=== PATIENT | male | born 1955 | race Caucasian/White ===

== ENCOUNTER 2018-07-30 00:06 | Inpatient (IN) | payer OTHER ==
[~2018-07-30] VITALS: Ht 182.9 cm; Wt 200.0 kg
[~2018-07-30 00:06] MED LIST: AVAPRO150 MG
[2018-07-30] MEDS ORDERED: ATENOLOL25 GM (00:19)
[2018-07-30] MEDS ORDERED: VITAMIN A (00:19)
[2018-07-30] MEDS ORDERED: GLUCOPHAGE XR500 MG (00:19)
== END 2018-08-11 19:51 | disposition home or self-care (01) | DRG 439 ==
LOC: ER 00:06 → MEDI 06:19
PROC: BW40ZZZ Ultrasonography of Abdomen (ICD-10-PCS; principal; 2018-07-30)
PROC: 02HV33Z Insertion of Infusion Device into Superior Vena Cava, Percutaneous Approach (ICD-10-PCS; 2018-07-31)
PROC: BF37ZZZ Magnetic Resonance Imaging (MRI) of Pancreas (ICD-10-PCS; 2018-08-03)
PROC: BW30Y0Z Magnetic Resonance Imaging (MRI) of Abdomen using Other Contrast, Unenhanced and Enhanced (ICD-10-PCS; 2018-08-03)
DX: K85.80 Other acute pancreatitis without necrosis or infection (principal); K80.10 Calculus of gallbladder with chronic cholecystitis without obstruction; K70.30 Alcoholic cirrhosis of liver without ascites; K57.30 Diverticulosis of large intestine without perforation or abscess without bleeding; K76.89 Other specified diseases of liver; K29.60 Other gastritis without bleeding; R16.1 Splenomegaly, not elsewhere classified; K27.9 Peptic ulcer, site unspecified, unspecified as acute or chronic, without hemorrhage or perforation; E11.9 Type 2 diabetes mellitus without complications; I10 Essential (primary) hypertension; I25.10 Atherosclerotic heart disease of native coronary artery without angina pectoris; Z86.010 Personal history of colon polyps
CPT/HCPCS: 74185

== ENCOUNTER 2022-10-15 19:25 | Inpatient (IN) | payer OTHER ==
[~2022-10-15] VITALS: Ht 182.9 cm; Wt 90.7 kg
[~2022-10-15 19:25] MED LIST changes: +ATENOLOL25 GM; +GLUCOPHAGE XR500 MG; +VITAMIN A
[2022-10-15] MEDS ORDERED: LASIX20 MG (22:19)
[2022-10-15] MEDS ORDERED: SYNTHROID50 MCG PO (22:19)
[2022-10-15] MEDS ORDERED: DIOVAN160 M1 PO (22:19)
[2022-10-23] MEDS ORDERED: LATANOPROST2.5 ML (16:22)
[2022-10-23] MEDS ORDERED: FAMOTIDINE20 MG (16:22)
[2022-10-23] MEDS ORDERED: GLIPIZIDE ER2.5 MG (16:22)
[2022-10-23] MEDS ORDERED: PROPRANOLOL HCL20 MG (16:22)
[2022-10-23] MEDS ORDERED: MYCOPHENOLATE500 MG (16:23)
[2022-10-23] MEDS ORDERED: TACROLIMUS0.5 MG (16:23)
[2022-10-23] MEDS ORDERED: ST. JOSEPH ASPI81 M2 (16:23)
[2022-10-23] MEDS ORDERED: METFORMIN HCL500 M4 (16:23)
== END 2022-11-05 09:25 | disposition expired | DRG 207 ==
LOC: ER 19:25 → ICU 22:26 → ICU-2 22:26 → ICU 23:10 → SURH 10-31 14:14
PROVIDERS: ADMIT Internal Medicine; ATTEND Internal Medicine
PROC: 5A1955Z Respiratory Ventilation, Greater than 96 Consecutive Hours (ICD-10-PCS; principal; 2022-10-15)
PROC: 0BH17EZ Insertion of Endotracheal Airway into Trachea, Via Natural or Artificial Opening (ICD-10-PCS; 2022-10-15)
PROC: B24BZZZ Ultrasonography of Heart with Aorta (ICD-10-PCS; 2022-10-16)
PROC: 02HV33Z Insertion of Infusion Device into Superior Vena Cava, Percutaneous Approach (ICD-10-PCS; 2022-10-16)
PROC: BW24ZZZ Computerized Tomography (CT Scan) of Chest and Abdomen (ICD-10-PCS; 2022-10-17)
PROC: BW28ZZZ Computerized Tomography (CT Scan) of Head (ICD-10-PCS; 2022-10-17)
PROC: 30233N1 Transfusion of Nonautologous Red Blood Cells into Peripheral Vein, Percutaneous Approach (ICD-10-PCS; 2022-10-20)
PROC: 06HN33Z Insertion of Infusion Device into Left Femoral Vein, Percutaneous Approach (ICD-10-PCS; 2022-10-22)
DX: J96.02 Acute respiratory failure with hypercapnia (principal); R65.21 Severe sepsis with septic shock; J18.9 Pneumonia, unspecified organism; I46.9 Cardiac arrest, cause unspecified; I21.A1 Myocardial infarction type 2; N17.8 Other acute kidney failure; G93.1 Anoxic brain damage, not elsewhere classified; E87.4 Mixed disorder of acid-base balance; Z99.11 Dependence on respirator [ventilator] status; Z94.4 Liver transplant status; E27.49 Other adrenocortical insufficiency; I13.0 Hypertensive heart and chronic kidney disease with heart failure and stage 1 through stage 4 chronic kidney disease, or unspecified chronic kidney disease; I50.1 Left ventricular failure, unspecified; J96.01 Acute respiratory failure with hypoxia; D64.9 Anemia, unspecified; E87.6 Hypokalemia; Z79.4 Long term (current) use of insulin; K70.9 Alcoholic liver disease, unspecified; F10.20 Alcohol dependence, uncomplicated; E03.9 Hypothyroidism, unspecified; E11.22 Type 2 diabetes mellitus with diabetic chronic kidney disease; N18.9 Chronic kidney disease, unspecified; E11.65 Type 2 diabetes mellitus with hyperglycemia; R41.82 Altered mental status, unspecified; Z20.822 Contact with and (suspected) exposure to COVID-19